=== PATIENT | female | born 1975 | race Caucasian/White ===

== ENCOUNTER 2023-07-06 07:39 | Outpatient (CLI) | payer OTHER | END 2023-07-06 07:42 | disposition home or self-care (01) | LOC: SONOGRAMA 07:39 | PROVIDERS: ATTEND General Practice | DX: R05.9 Cough, unspecified (principal); R06.02 Shortness of breath; M79.671 Pain in right foot; M79.672 Pain in left foot ==

== ENCOUNTER 2023-07-13 07:33 | Outpatient (CLI) | payer OTHER | END 2023-07-13 07:43 | disposition home or self-care (01) | LOC: SONOGRAMA 07:33 | PROVIDERS: ATTEND General Practice | DX: K73.8 Other chronic hepatitis, not elsewhere classified (principal); Z11.3 Encounter for screening for infections with a predominantly sexual mode of transmission; E78.1 Pure hyperglyceridemia; E66.9 Obesity, unspecified ==

== ENCOUNTER 2023-08-10 04:33 | Day surgery (SDC) | payer OTHER ==
[~2023-08-10 04:33] MED LIST: COZAAR50 MG PO; FERROCITE PLUS1 EACH PO; HYDROC PO
== END 2023-08-10 12:10 | disposition home or self-care (01) ==
LOC: CIR.AMB 04:33
PROVIDERS: ATTEND Specialist
DX: K80.10 Calculus of gallbladder with chronic cholecystitis without obstruction (principal); Z20.822 Contact with and (suspected) exposure to COVID-19; I10 Essential (primary) hypertension

== ENCOUNTER 2025-01-11 07:36 | Outpatient (CLI) | payer OTHER | END 2025-01-11 08:00 | disposition home or self-care (01) | LOC: RAD 07:36 → MRI 07:36 → RAD 08:00 | PROVIDERS: ATTEND General Practice | DX: I10 Essential (primary) hypertension (principal); R06.02 Shortness of breath ==

== ENCOUNTER 2025-03-06 07:04 | Outpatient (CLI) | payer OTHER | END 2025-03-06 07:10 | disposition home or self-care (01) | LOC: MAMO-SONO 07:04 | PROVIDERS: ATTEND Specialist | DX: N63.0 Unspecified lump in unspecified breast (principal); Z12.31 Encounter for screening mammogram for malignant neoplasm of breast; R10.2 Pelvic and perineal pain ==